=== PATIENT | male | born 1990 | race Caucasian/White ===

== ENCOUNTER 2020-12-27 01:00 | Emergency (ER) | payer BC ==
[~2020-12-27] VITALS: Ht 187.9 cm; Wt 91.2 kg
== END 2020-12-27 02:50 | disposition left against medical advice (07) ==
LOC: ED 01:00
DX: B34.9 Viral infection, unspecified (principal); Z53.29 Procedure and treatment not carried out because of patient's decision for other reasons; Z88.0 Allergy status to penicillin